=== PATIENT | male | born 1970 | race Caucasian/White ===

== ENCOUNTER 2018-11-07 11:10 | Emergency (ER) | payer OTHER ==
[~2018-11-07] VITALS: Ht 177.8 cm; Wt 74.8 kg
== END 2018-11-07 13:30 | disposition home or self-care (01) ==
LOC: ED 11:10
DX: H61.21 Impacted cerumen, right ear (principal); F17.200 Nicotine dependence, unspecified, uncomplicated; Z88.8 Allergy status to other drugs, medicaments and biological substances

== ENCOUNTER 2019-04-30 10:30 | Emergency (ER) | payer OTHER ==
[~2019-04-30] VITALS: Ht 177.8 cm; Wt 74.8 kg
== END 2019-04-30 11:37 | disposition home or self-care (01) ==
LOC: ED 10:30
DX: S66.911A Strain of unspecified muscle, fascia and tendon at wrist and hand level, right hand, initial encounter (principal); E78.00 Pure hypercholesterolemia, unspecified; Z88.8 Allergy status to other drugs, medicaments and biological substances; X58.XXXA Exposure to other specified factors, initial encounter; Y93.89 Activity, other specified; Y92.89 Other specified places as the place of occurrence of the external cause; Y99.8 Other external cause status

== ENCOUNTER 2020-10-14 19:51 | Emergency (ER) | payer OTHER ==
[2020-10-14 20:53] LABS: BASO % 0.3 % (0.0-1.0); EOS # 0.1 10*3/uL (0.0-0.4); HEMATOCRIT 43.7 % (42.0-52.0); LYMPH # 1.3 10*3/uL (1.3-4.4); MEAN CELL VOLUME 89.4 fl (80.0-94.0); MEAN CORPUSCULAR HGB 30.1 pg (27.0-31.0); MEAN CORPUSCULAR HGB CONC 33.6 g/dl (33.0-37.0); MEAN PLATELET VOLUME 10.2 fl (9.6-12.3); MONO # 0.8 10*3/uL (0.1-1.0); MONO % 6.3 % (3.0-9.0); NEUT # 10.3 10*3/uL (2.3-7.9); NEUT % 82.1 % (47.0-73.0); PLATELET COUNT AUTOMATED 327 10*3/uL (130-400); RED BLOOD COUNT 4.89 10*6/uL (4.50-5.90); RED CELL DISTRI WIDTH 13.2 % (0-14.5); WHITE BLOOD COUNT 12.6 10*3/uL (4.8-10.8)
[2020-10-14 21:30] LABS: ALBUMIN 4.4 gm/dl (3.1-4.5); ALKALINE PHOSPHATASE 43 U/L (45-117); BUN 18 mg/dl (7-24); CHLORIDE 109 mmol/L (98-107); CREATININE 1.16 mg/dL (0.70-1.30); LIPASE 92 U/L (73-393); POTASSIUM 3.4 mmol/L (3.5-5.1); SGOT/AST 22 IU/L (3-35); SGPT/ALT 37 U/L (12-78); SODIUM 139 mmol/L (136-145); TOTAL PROTEIN 8.4 gm/dL (6.4-8.2)
[2020-10-14 22:19] LABS: BILIRUBIN Negative (Negative); BLOOD Trace-Intact (Negative); CLARITY Turbid (Clear); COLOR Yellow (Yellow); GLUCOSE Negative (Negative); KETONE Negative (Negative); LEUKO ESTERASE Negative (Negative); NITRITE Negative (Negative); SPECIFIC GRAVITY 1.015 (1.001-1.030)
[2020-10-14 22:21] LABS: PH 8.5 (4.5-8.0)
== END 2020-10-14 23:28 | disposition home or self-care (01) ==
LOC: ED 19:51
PROVIDERS: Emergency Medicine
DX: R10.31 Right lower quadrant pain (principal); R11.10 Vomiting, unspecified; R19.7 Diarrhea, unspecified

== ENCOUNTER 2020-11-08 18:30 | Emergency (ER) | payer OTHER ==
[~2020-11-08] VITALS: Ht 182.8 cm; Wt 95.9 kg
[2020-11-08 19:09] LABS: BASO % 0.4 % (0.0-1.0); EOS # 0.1 10*3/uL (0.0-0.4); EOS % 0.6 % (1.0-4.0); HEMATOCRIT 39.3 % (42.0-52.0); LYMPH # 1.5 10*3/uL (1.3-4.4); LYMPH % 14.4 % (27.0-41.0); MEAN CELL VOLUME 88.1 fl (80.0-94.0); MEAN CORPUSCULAR HGB 30.5 pg (27.0-31.0); MEAN CORPUSCULAR HGB CONC 34.6 g/dl (33.0-37.0); MEAN PLATELET VOLUME 10.5 fl (9.6-12.3); MONO % 9.6 % (3.0-9.0); NEUT % 74.7 % (47.0-73.0); PLATELET COUNT AUTOMATED 242 10*3/uL (130-400); RED BLOOD COUNT 4.46 10*6/uL (4.50-5.90); RED CELL DISTRI WIDTH 13.3 % (0-14.5); WHITE BLOOD COUNT 10.7 10*3/uL (4.8-10.8)
[2020-11-08 19:23] LABS: ALBUMIN 4.1 gm/dl (3.1-4.5); ALKALINE PHOSPHATASE 52 U/L (45-117); BUN 21 mg/dl (7-24); CHLORIDE 110 mmol/L (98-107); CREATININE 1.48 mg/dL (0.70-1.30); LIPASE 70 U/L (73-393); POTASSIUM 3.3 mmol/L (3.5-5.1); SGOT/AST 24 IU/L (3-35); SGPT/ALT 36 U/L (12-78); SODIUM 143 mmol/L (136-145)
[2020-11-08] MEDS ORDERED: FLOMAX0.4 MG PO (20:49)
[2020-11-08] MEDS ORDERED: ZOFRAN4 MG PO (20:49)
== END 2020-11-08 21:06 | disposition home or self-care (01) ==
LOC: ED 18:30
PROVIDERS: Internal Medicine
DX: N20.9 Urinary calculus, unspecified (principal); I10 Essential (primary) hypertension; F32.9 Major depressive disorder, single episode, unspecified; E78.00 Pure hypercholesterolemia, unspecified

== ENCOUNTER 2021-01-29 12:40 | Emergency (ER) | payer OTHER ==
[~2021-01-29] VITALS: Wt 68.5 kg
[~2021-01-29 12:40] MED LIST: FLOMAX0.4 MG PO; ZOFRAN4 MG PO
[2021-01-29 13:14] LABS: BILIRUBIN Negative (Negative); BLOOD 3+ (Negative); CLARITY Clear (Clear); COLOR Yellow (Yellow); GLUCOSE Negative (Negative); KETONE Negative (Negative); LEUKO ESTERASE Negative (Negative); NITRITE Negative (Negative); SPECIFIC GRAVITY 1.015 (1.001-1.030); UROBILINOGEN 0.2 E.U./dl (0.0-1.0)
[2021-01-29 13:32] LABS: BACTERIA TRACE; RBC TNTC rbc/hpf (0-2)
[2021-01-29 14:35] LABS: BASO # 0.1 10*3/uL (0.0-0.1); BASO % 0.7 % (0.0-1.0); EOS # 0.5 10*3/uL (0.0-0.4); HEMATOCRIT 41.2 % (42.0-52.0); LYMPH # 1.3 10*3/uL (1.3-4.4); LYMPH % 17.7 % (27.0-41.0); MEAN CORPUSCULAR HGB 30.9 pg (27.0-31.0); MEAN CORPUSCULAR HGB CONC 33.3 g/dl (33.0-37.0); MEAN PLATELET VOLUME 10.1 fl (9.6-12.3); MONO # 0.7 10*3/uL (0.1-1.0); MONO % 9.7 % (3.0-9.0); NEUT # 4.8 10*3/uL (2.3-7.9); PLATELET COUNT AUTOMATED 301 10*3/uL (130-400); RED BLOOD COUNT 4.43 10*6/uL (4.50-5.90); RED CELL DISTRI WIDTH 14.6 % (0-14.5); WHITE BLOOD COUNT 7.4 10*3/uL (4.8-10.8)
[2021-01-29 14:54] LABS: ALBUMIN 3.6 gm/dl (3.1-4.5); BUN 13 mg/dl (7-24); CHLORIDE 111 mmol/L (98-107); SODIUM 140 mmol/L (136-145)
[2021-01-29 14:58] LABS: ALKALINE PHOSPHATASE 59 U/L (45-117); CREATININE 1.03 mg/dL (0.70-1.30); SGOT/AST 20 IU/L (3-35); SGPT/ALT 34 U/L (12-78); TOTAL PROTEIN 7.6 gm/dL (6.4-8.2)
[2021-01-29] MEDS ORDERED: PERCOCET 5-3251 EACH PO (17:17)
[2021-01-29] MEDS ORDERED: FLOMAX0.4 MG PO (17:17)
[2021-01-29] MEDS ORDERED: NORVASC10 MG PO (17:17)
[2021-01-29] MEDS ORDERED: ZOFRAN4 MG PO (17:17)
== END 2021-01-29 17:19 | disposition left against medical advice (07) ==
LOC: ED 12:40
PROVIDERS: Emergency Medicine; Nurse Practitioner Family
DX: N20.0 Calculus of kidney (principal); N20.1 Calculus of ureter; I10 Essential (primary) hypertension; Z79.899 Other long term (current) drug therapy; Z88.5 Allergy status to narcotic agent

== ENCOUNTER → 2021-02-22 | Outpatient (CLI) | payer OTHER ==
[~2021-02-22] MED LIST changes: +NORVASC10 MG PO; +PERCOCET 5-3251 EACH PO
== END | disposition home or self-care (01) ==
LOC: RAD 10:30
PROVIDERS: ATTEND Urology
DX: N20.0 Calculus of kidney (principal); N32.0 Bladder-neck obstruction

== ENCOUNTER → 2021-02-24 | Outpatient (CLI) | payer OTHER | END | disposition home or self-care (01) | LOC: CARD 15:59 | DX: E11.65 Type 2 diabetes mellitus with hyperglycemia (principal) ==

== ENCOUNTER → 2021-04-18 | Outpatient (CLI) | payer OTHER ==
[2021-04-18 11:16] LABS: MEAN CELL VOLUME 92.1 fl (80.0-94.0); MEAN CORPUSCULAR HGB 30.2 pg (27.0-31.0); MEAN CORPUSCULAR HGB CONC 32.8 g/dl (33.0-37.0); MEAN PLATELET VOLUME 9.9 fl (9.6-12.3); NUCLEATED RED BLOOD CELL 0.2 % (0.0-0.0); PLATELET COUNT AUTOMATED 371 10*3/uL (130-400); RED BLOOD COUNT 4.67 10*6/uL (4.50-5.90); RED CELL DISTRI WIDTH 14.6 % (0-14.5); WHITE BLOOD COUNT 9.6 10*3/uL (4.8-10.8)
[2021-04-18 11:35] LABS: ALBUMIN 3.8 gm/dl (3.1-4.5); BUN 16 mg/dl (7-24); CHLORIDE 111 mmol/L (98-107); CHOLESTEROL 292 mg/dL (<200); CREATININE 0.97 mg/dL (0.70-1.30); POTASSIUM 3.5 mmol/L (3.5-5.1); SGOT/AST 8 IU/L (3-35); SGPT/ALT 21 U/L (12-78); SODIUM 143 mmol/L (136-145); TOTAL PROTEIN 7.6 gm/dL (6.4-8.2); TRIGLYCERIDES 646 mg/dl (<150)
[2021-04-18 11:41] LABS: ALKALINE PHOSPHATASE 64 U/L (45-117); FREE T4 0.87 ng/dl (0.76-1.46)
[2021-04-18 11:50] LABS: TOTAL CELLS COUNTED 100 #CELLS
[2021-04-18 11:51] LABS: DIFFERENTIAL COMMENT COMMENT:; PLATELET SUFFICIENCY LOW (NORMAL)
[2021-04-18 12:13] LABS: VITAMIN D, 25-HYDROXY 15.4 ng/mL (30-100)
== END | disposition home or self-care (01) ==
LOC: LAB 10:41
PROVIDERS: ATTEND Internal Medicine
DX: Z13.1 Encounter for screening for diabetes mellitus (principal); Z13.21 Encounter for screening for nutritional disorder; Z13.220 Encounter for screening for lipoid disorders; Z13.228 Encounter for screening for other metabolic disorders; Z13.89 Encounter for screening for other disorder; Z12.5 Encounter for screening for malignant neoplasm of prostate; Z13.0 Encounter for screening for diseases of the blood and blood-forming organs and certain disorders involving the immune mechanism; R53.81 Other malaise; R79.89 Other specified abnormal findings of blood chemistry; E55.9 Vitamin D deficiency, unspecified; D51.9 Vitamin B12 deficiency anemia, unspecified; E03.9 Hypothyroidism, unspecified; D52.9 Folate deficiency anemia, unspecified; I10 Essential (primary) hypertension; E78.2 Mixed hyperlipidemia; R07.9 Chest pain, unspecified

== ENCOUNTER 2021-07-01 20:28 | Emergency (ER) | payer OTHER ==
[~2021-07-01] VITALS: Ht 177.8 cm; Wt 72.6 kg
[2021-07-01] MEDS ORDERED: AMOXICILLIN500 M2 PO (21:02)
[2021-07-01] MEDS ORDERED: IBUPROFEN600 MG PO (21:02)
[2021-07-01] MEDS ORDERED: FENOFIBRATE160 MG PO (21:03)
[2021-07-01] MEDS ORDERED: BACLOFEN5 MG PO (21:03)
[2021-07-01] MEDS ORDERED: GABAPENTIN400 MG PO (21:04)
[2021-07-01] MEDS ORDERED: QUETIAPINE FUM100 M3 PO (21:04)
[2021-07-01] MEDS ORDERED: CLONAZEPAM0.5 M2 PO (21:05)
[2021-07-01] MEDS ORDERED: SIMVASTATIN20 MG PO (21:06)
[2021-07-01] MEDS ORDERED: ONDANSETRON HYDR4 MG PO (21:06)
[2021-07-01] MEDS ORDERED: LISINOPRIL-HCT1 EACH PO (21:06)
== END 2021-07-01 23:00 | disposition left against medical advice (07) ==
LOC: ED 20:28
DX: R21 Rash and other nonspecific skin eruption (principal); Z53.21 Procedure and treatment not carried out due to patient leaving prior to being seen by health care provider

== ENCOUNTER 2021-08-07 12:02 | Emergency (ER) | payer OTHER ==
[~2021-08-07] VITALS: Ht 177.8 cm; Wt 68.0 kg
[~2021-08-07 12:02] MED LIST changes: +AMOXICILLIN500 M2 PO; +BACLOFEN5 MG PO; +CLONAZEPAM0.5 M2 PO; +FENOFIBRATE160 MG PO; +GABAPENTIN400 MG PO; +IBUPROFEN600 MG PO; +LISINOPRIL-HCT1 EACH PO; +ONDANSETRON HYDR4 MG PO; +QUETIAPINE FUM100 M3 PO; +SIMVASTATIN20 MG PO
[2021-08-07 12:52] LABS: BASO # 0.1 10*3/uL (0.0-0.1); BASO % 0.9 % (0.0-1.0); EOS # 0.1 10*3/uL (0.0-0.4); EOS % 1.6 % (1.0-4.0); HEMATOCRIT 42.1 % (42.0-52.0); LYMPH # 1.6 10*3/uL (1.3-4.4); LYMPH % 23.8 % (27.0-41.0); MEAN CELL VOLUME 93.8 fl (80.0-94.0); MEAN CORPUSCULAR HGB 31.4 pg (27.0-31.0); MEAN CORPUSCULAR HGB CONC 33.5 g/dl (33.0-37.0); MEAN PLATELET VOLUME 10.3 fl (9.6-12.3); MONO # 0.6 10*3/uL (0.1-1.0); MONO % 8.5 % (3.0-9.0); NEUT # 4.3 10*3/uL (2.3-7.9); NEUT % 64.5 % (47.0-73.0); PLATELET COUNT AUTOMATED 337 10*3/uL (130-400); RED BLOOD COUNT 4.49 10*6/uL (4.50-5.90); RED CELL DISTRI WIDTH 13.6 % (0-14.5); WHITE BLOOD COUNT 6.7 10*3/uL (4.8-10.8)
[2021-08-07 13:08] LABS: ALBUMIN 4.1 gm/dl (3.1-4.5); CREATININE 1.68 mg/dL (0.70-1.30); POTASSIUM 3.7 mmol/L (3.5-5.1); TOTAL PROTEIN 8.5 gm/dL (6.4-8.2)
[2021-08-07 13:34] LABS: BILIRUBIN Negative (Negative); BLOOD Negative (Negative); CLARITY Clear (Clear); COLOR Yellow (Yellow); GLUCOSE Negative (Negative); KETONE Negative (Negative); LEUKO ESTERASE Negative (Negative); NITRITE Negative (Negative); SPECIFIC GRAVITY 1.025 (1.001-1.030)
== END 2021-08-07 15:50 | disposition home or self-care (01) ==
LOC: ED 12:02
PROVIDERS: Student in an Organized Health Care Education/Training Program
DX: N20.0 Calculus of kidney (principal); Z20.822 Contact with and (suspected) exposure to COVID-19; F17.210 Nicotine dependence, cigarettes, uncomplicated; Z88.8 Allergy status to other drugs, medicaments and biological substances; Z79.899 Other long term (current) drug therapy

== ENCOUNTER → 2021-10-05 | Outpatient (CLI) | payer OTHER | LOC: COVID19 16:32 | PROVIDERS: ATTEND Family Medicine | DX: Z11.52 Encounter for screening for COVID-19 (principal); Z20.822 Contact with and (suspected) exposure to COVID-19 ==

== ENCOUNTER 2022-08-19 18:34 | Emergency (ER) | payer OTHER ==
[~2022-08-19] VITALS: Ht 177.8 cm; Wt 72.6 kg
[2022-08-19] MEDS ORDERED: PREDNISONE20 M1 PO (20:33)
[2022-08-19] MEDS ORDERED: VIBRAMYCIN100 MG PO (20:33)
== END 2022-08-19 21:21 | disposition home or self-care (01) ==
LOC: ED 18:34
DX: J44.1 Chronic obstructive pulmonary disease with (acute) exacerbation (principal); Z20.822 Contact with and (suspected) exposure to COVID-19; Z88.8 Allergy status to other drugs, medicaments and biological substances; Z79.899 Other long term (current) drug therapy; F17.200 Nicotine dependence, unspecified, uncomplicated

== ENCOUNTER 2023-01-17 20:19 | Emergency (ER) | payer OTHER ==
[~2023-01-17] VITALS: Ht 179 cm; Wt 65.8 kg
[~2023-01-17 20:19] MED LIST changes: +PREDNISONE20 M1 PO; +VIBRAMYCIN100 MG PO
[2023-01-17] MEDS ORDERED: QUETIAPINE FUM100 M1 PO (20:29)
[2023-01-17] MEDS ORDERED: NEURONTIN400 MG PO (20:29)
[2023-01-17] MEDS ORDERED: ACYCLOVIR800 MG PO (21:13)
[2023-01-17] MEDS ORDERED: HYDROCODONE-AC1 EAC1 PO (21:13)
[2023-01-17] MEDS ORDERED: PREDNISONE10 MG PO (21:13)
== END 2023-01-17 21:55 | disposition home or self-care (01) ==
LOC: ED 20:19
DX: R10.11 Right upper quadrant pain (principal); I10 Essential (primary) hypertension; M54.6 Pain in thoracic spine; R07.81 Pleurodynia; F32.A Depression, unspecified; E78.00 Pure hypercholesterolemia, unspecified; J44.9 Chronic obstructive pulmonary disease, unspecified; Z88.8 Allergy status to other drugs, medicaments and biological substances; Z87.442 Personal history of urinary calculi; Z87.891 Personal history of nicotine dependence

== ENCOUNTER → 2023-03-27 | Outpatient (CLI) | payer OTHER ==
[~2023-03-27] MED LIST changes: +ACYCLOVIR800 MG PO; +HYDROCODONE-AC1 EAC1 PO; +NEURONTIN400 MG PO; +PREDNISONE10 MG PO; +QUETIAPINE FUM100 M1 PO
== END | disposition home or self-care (01) ==
LOC: CT 03-22 08:00
PROVIDERS: ATTEND Family Medicine
DX: Z12.2 Encounter for screening for malignant neoplasm of respiratory organs (principal); N20.0 Calculus of kidney; J44.9 Chronic obstructive pulmonary disease, unspecified; R91.1 Solitary pulmonary nodule

== ENCOUNTER 2024-04-13 09:11 | Emergency (ER) | payer OTHER ==
[~2024-04-13] VITALS: Ht 177.8 cm; Wt 55.3 kg
[2024-04-13] MEDS ORDERED: LORAZEPAM0.5 M1 PO (09:24)
[2024-04-13] MEDS ORDERED: Dexamethasone Sodium Phospha 20 MG/5 ML VIAL IM ONE (09:35)
[2024-04-13] MEDS ORDERED: Ketorolac Tromethamine 30 MG/ML VIAL IM ONE (09:35)
[2024-04-13] MEDS ORDERED: PERCOCET 5-3251 EACH PO (10:15)
== END 2024-04-13 10:22 | disposition home or self-care (01) ==
LOC: ED 09:11
DX: S22.31XA Fracture of one rib, right side, initial encounter for closed fracture (principal); I10 Essential (primary) hypertension; F32.A Depression, unspecified; E78.00 Pure hypercholesterolemia, unspecified; J44.9 Chronic obstructive pulmonary disease, unspecified; Z87.442 Personal history of urinary calculi; Z88.8 Allergy status to other drugs, medicaments and biological substances; W22.8XXA Striking against or struck by other objects, initial encounter; Y93.89 Activity, other specified; Y92.009 Unspecified place in unspecified non-institutional (private) residence as the place of occurrence of the external cause; Y99.8 Other external cause status

== ENCOUNTER 2024-04-27 11:34 | Emergency (ER) | payer OTHER ==
[~2024-04-27] VITALS: Ht 177.8 cm; Wt 55.3 kg
[~2024-04-27 11:34] MED LIST changes: +LORAZEPAM0.5 M1 PO
[2024-04-27] MEDS ORDERED: Albuterol Sulf/Ipratropium 3 ML VIAL NEB ONE (11:50)
[2024-04-27] MEDS ORDERED: methylPREDNISolone sod succ 125 MG VIAL IM ONE (11:50)
[2024-04-27 12:14] LABS: BASO # 0.1 10*3/uL (0.0-0.1); BASO % 0.8 % (0.0-1.0); EOS # 0.1 10*3/uL (0.0-0.4); EOS % 1.3 % (1.0-4.0); HEMATOCRIT 35.2 % (42.0-52.0); LYMPH # 1.3 10*3/uL (1.3-4.4); LYMPH % 15.4 % (27.0-41.0); MEAN CELL VOLUME 95.4 fl (80.0-94.0); MEAN CORPUSCULAR HGB 31.4 pg (27.0-31.0); MEAN PLATELET VOLUME 9.2 fl (9.6-12.3); MONO # 0.6 10*3/uL (0.1-1.0); NEUT # 6.4 10*3/uL (2.3-7.9); NEUT % 75.3 % (47.0-73.0); PLATELET COUNT AUTOMATED 329 10*3/uL (130-400); RED BLOOD COUNT 3.69 10*6/uL (4.50-5.90); RED CELL DISTRI WIDTH 14.2 % (0-14.5); WHITE BLOOD COUNT 8.5 10*3/uL (4.8-10.8)
[2024-04-27 12:42] LABS: BUN 13 mg/dl (9-23); CHLORIDE 109 mmol/L (98-107); POTASSIUM 3.7 mmol/L (3.4-5.1)
[2024-04-27] MEDS ORDERED: PREDNISONE50 MG PO (13:37)
[2024-04-27] MEDS ORDERED: ALBUTEROL 8 GM INHALER INH ONE (13:40)
== END 2024-04-27 13:58 | disposition home or self-care (01) ==
LOC: ED 11:34
PROVIDERS: Physician Assistant Medical
DX: J98.11 Atelectasis (principal); I10 Essential (primary) hypertension; J44.9 Chronic obstructive pulmonary disease, unspecified; F32.A Depression, unspecified; E78.00 Pure hypercholesterolemia, unspecified; F17.290 Nicotine dependence, other tobacco product, uncomplicated; Z87.442 Personal history of urinary calculi; Z88.8 Allergy status to other drugs, medicaments and biological substances

== ENCOUNTER 2024-04-30 00:31 | Inpatient (IN) | payer OTHER ==
[~2024-04-30] VITALS: Ht 177.8 cm; Wt 57.2 kg
[~2024-04-30 00:31] MED LIST changes: +PREDNISONE50 MG PO
[2024-04-30 00:42] VITALS: BP 148/90
[2024-04-30] MEDS ORDERED: Albuterol Sulf/Ipratropium 3 ML VIAL NEB ONE (01:00)
[2024-04-30 01:13] LABS: BASO % 0.2 % (0.0-1.0); EOS % 0.1 % (1.0-4.0); LYMPH % 8.6 % (27.0-41.0); MEAN CELL VOLUME 99.2 fl (80.0-94.0); MEAN CORPUSCULAR HGB 31.4 pg (27.0-31.0); MEAN CORPUSCULAR HGB CONC 31.7 g/dl (33.0-37.0); MEAN PLATELET VOLUME 9.3 fl (9.6-12.3); MONO # 0.4 10*3/uL (0.1-1.0); NEUT # 10.4 10*3/uL (2.3-7.9); NEUT % 87.8 % (47.0-73.0); PLATELET COUNT AUTOMATED 342 10*3/uL (130-400); RED BLOOD COUNT 3.53 10*6/uL (4.50-5.90); RED CELL DISTRI WIDTH 14.6 % (0-14.5); WHITE BLOOD COUNT 11.9 10*3/uL (4.8-10.8)
[2024-04-30 01:36] LABS: ALKALINE PHOSPHATASE 64 U/L (46-116); BUN 21 mg/dl (9-23); CHLORIDE 109 mmol/L (98-107); POTASSIUM 4.4 mmol/L (3.4-5.1); SGPT/ALT 31 U/L (5-49); TOTAL PROTEIN 6.7 gm/dL (6.0-8.0)
[2024-04-30] MEDS ORDERED: FUROSEMIDE 40 MG/4 ML VIAL IV ONE (03:20)
[2024-04-30] MEDS ORDERED: HEPARIN SODIUM 250 ML IV SCH ×2 (03:25→04:10)
[2024-04-30] MEDS ORDERED: BISACODYL 10 MG SUPP R PRN (04:05)
[2024-04-30] MEDS ORDERED: TEMAZEPAM 15 MG CAP PO PRN (04:05)
[2024-04-30] MEDS ORDERED: Ondansetron Hydrochloride 4 MG/2 ML VIAL IV PRN (04:05)
[2024-04-30] MEDS ORDERED: ACETAMINOPHEN 650 MG SUPP R PRN (04:05)
[2024-04-30] MEDS ORDERED: ACETAMINOPHEN 325 MG TAB PO PRN (04:05)
[2024-04-30] MEDS ORDERED: Magnesium Hydroxide 30 ML UDC PO PRN (04:05)
[2024-04-30] MEDS ORDERED: MORPHINE Sulfate 2 MG/ML SYR IV PRN (04:05)
[2024-04-30] MEDS ORDERED: BISACODYL 5 MG TAB PO PRN (04:05)
[2024-04-30] MEDS ORDERED: Albuterol Sulf/Ipratropium 3 ML VIAL NEB SCH (04:15)
[2024-04-30] MEDS ORDERED: ASPIRIN 325 MG TAB PO ONE (04:30)
[2024-04-30] MEDS ORDERED: methylPREDNISolone sod succ 125 MG VIAL IV ONE (04:35)
[2024-04-30] MEDS ORDERED: Pantoprazole Sodium 40 MG VIAL IV SCH (06:00)
[2024-04-30] MEDS ORDERED: AZITHROMYCIN 250 ML IV SCH (06:00)
[2024-04-30] MEDS ORDERED: Ceftriaxone Sodium 1 GM in SYRINGE INFUSION 10 ML IV SCH (06:00)
[2024-04-30 06:20] VITALS: BP 139/77
[2024-04-30 06:57] LABS: BASO % 0.1 % (0.0-1.0); EOS % 0.1 % (1.0-4.0); HEMATOCRIT 32.3 % (42.0-52.0); LYMPH # 1.1 10*3/uL (1.3-4.4); LYMPH % 9.1 % (27.0-41.0); MEAN CELL VOLUME 97.3 fl (80.0-94.0); MEAN CORPUSCULAR HGB 31.9 pg (27.0-31.0); MEAN CORPUSCULAR HGB CONC 32.8 g/dl (33.0-37.0); MEAN PLATELET VOLUME 9.7 fl (9.6-12.3); MONO # 0.6 10*3/uL (0.1-1.0); MONO % 4.7 % (3.0-9.0); NEUT % 85.5 % (47.0-73.0); PLATELET COUNT AUTOMATED 321 10*3/uL (130-400); RED BLOOD COUNT 3.32 10*6/uL (4.50-5.90); RED CELL DISTRI WIDTH 14.5 % (0-14.5); WHITE BLOOD COUNT 11.7 10*3/uL (4.8-10.8)
[2024-04-30 08:22] LABS: VITAMIN D, 25-HYDROXY 22.1 ng/mL (30-100)
[2024-04-30 08:27] LABS: ALKALINE PHOSPHATASE 61 U/L (46-116); BUN 20 mg/dl (9-23); CHLORIDE 108 mmol/L (98-107); CHOLESTEROL 255 mg/dL (<200); FREE T4 1.39 ng/dl (0.89-1.76); LDL CHOLESTEROL 178 mg/dL (9-159); SGPT/ALT 30 U/L (5-49); TOTAL PROTEIN 6.6 gm/dL (6.0-8.0); TRIGLYCERIDES 157 mg/dl (<150)
[2024-04-30 08:49] LABS: POTASSIUM 3.1 mmol/L (3.4-5.1)
[2024-04-30] MEDS ORDERED: POTASSIUM CHLORIDE 20 MEQ TAB PO ONE (09:30)
[2024-04-30] MEDS ORDERED: Metoprolol Tartrate 25 MG TAB PO SCH (10:00)
[2024-04-30] MEDS ORDERED: FUROSEMIDE 40 MG/4 ML VIAL IV SCH (10:00)
[2024-04-30] MEDS ORDERED: Dextromethorphan Hydrobromid 1 TAB TAB PO SCH (10:00)
[2024-04-30] MEDS ORDERED: Nicotine 21 MG PATCH T SCH (10:00)
[2024-04-30 17:48] VITALS: BP 136/78
[2024-04-30 20:43] VITALS: BP 135/75
[2024-04-30] MEDS ORDERED: ATORVASTATIN CALCIUM 80 MG TAB PO SCH (22:00)
[2024-04-30 23:00] VITALS: BP 135/76
[2024-05-01] VITALS: BP 138/78
[2024-05-01 06:34] LABS: HEMATOCRIT 33.2 % (42.0-52.0); LYMPH # 1.6 10*3/uL (1.3-4.4); LYMPH % 16.9 % (27.0-41.0); MEAN CELL VOLUME 97.6 fl (80.0-94.0); MEAN CORPUSCULAR HGB 31.5 pg (27.0-31.0); MEAN CORPUSCULAR HGB CONC 32.2 g/dl (33.0-37.0); MONO # 0.7 10*3/uL (0.1-1.0); MONO % 7.2 % (3.0-9.0); NEUT # 7.2 10*3/uL (2.3-7.9); NEUT % 75.4 % (47.0-73.0); PLATELET COUNT AUTOMATED 376 10*3/uL (130-400); RED CELL DISTRI WIDTH 14.4 % (0-14.5); WHITE BLOOD COUNT 9.6 10*3/uL (4.8-10.8)
[2024-05-01 06:50] LABS: CHLORIDE 107 mmol/L (98-107)
[2024-05-01 06:51] LABS: BUN 30 mg/dl (9-23)
[2024-05-01 08:00] VITALS: BP 127/68
[2024-05-01] MEDS ORDERED: methylPREDNISolone sod succ 40 MG VIAL IV SCH (10:00)
[2024-05-01] MEDS ORDERED: ASPIRIN ENTERIC COATED 81 MG TAB PO SCH (10:00)
[2024-05-01] MEDS ORDERED: Cholecalciferol 2,000 UNIT TABLET (50 MCG) PO SCH (10:00)
[2024-05-01 12:00] VITALS: BP 130/77
[2024-05-01 16:00] VITALS: BP 156/91
[2024-05-01] MEDS ORDERED: Technetium Tc 99M Tetrofosmi 0.23 MG KIT IJ SCH (16:00)
[2024-05-01 18:00] VITALS: BP 156/91
[2024-05-01 20:00] VITALS: BP 155/86
[2024-05-02] VITALS: BP 112/62
[2024-05-02 06:05] LABS: BUN 31 mg/dl (9-23); CHLORIDE 104 mmol/L (98-107); POTASSIUM 3.8 mmol/L (3.4-5.1)
[2024-05-02 06:27] LABS: BASO % 0.1 % (0.0-1.0); HEMATOCRIT 32.2 % (42.0-52.0); LYMPH # 0.9 10*3/uL (1.3-4.4); LYMPH % 11.6 % (27.0-41.0); MEAN CELL VOLUME 96.4 fl (80.0-94.0); MEAN CORPUSCULAR HGB 31.1 pg (27.0-31.0); MEAN CORPUSCULAR HGB CONC 32.3 g/dl (33.0-37.0); MEAN PLATELET VOLUME 10.5 fl (9.6-12.3); MONO # 0.6 10*3/uL (0.1-1.0); MONO % 7.3 % (3.0-9.0); NEUT # 6.1 10*3/uL (2.3-7.9); NEUT % 80.6 % (47.0-73.0); PLATELET COUNT AUTOMATED 374 10*3/uL (130-400); RED BLOOD COUNT 3.34 10*6/uL (4.50-5.90); RED CELL DISTRI WIDTH 14.2 % (0-14.5); WHITE BLOOD COUNT 7.5 10*3/uL (4.8-10.8)
[2024-05-02] MEDS ORDERED: Regadenoson 0.4 MG/5 ML SYR IV ONE (06:53)
[2024-05-02 08:00] VITALS: BP 121/61
[2024-05-02] MEDS ORDERED: VITAMIN D350 MCG PO (14:36)
[2024-05-02] MEDS ORDERED: PREDNISONE10 MG PO (14:36)
[2024-05-02] MEDS ORDERED: ZITHROMAX250 MG PO (14:36)
== END 2024-05-02 15:15 | disposition home or self-care (01) | DRG 194 ==
LOC: ED 00:31 → EDHOLD 03:47 → 4E 03:47 → EDHOLD 15:52 → 4E 21:24
PROVIDERS: Emergency Medicine; Student in an Organized Health Care Education/Training Program; ADMIT Student in an Organized Health Care Education/Training Program; ATTEND Student in an Organized Health Care Education/Training Program
PROC: 4A02XM4 Measurement of Cardiac Total Activity, External Approach (ICD-10-PCS; principal; 2024-05-02)
PROC: 3E073KZ Introduction of Other Diagnostic Substance into Coronary Artery, Percutaneous Approach (ICD-10-PCS; 2024-05-02)
DX: I50.9 Heart failure, unspecified (principal); J44.1 Chronic obstructive pulmonary disease with (acute) exacerbation; J81.0 Acute pulmonary edema; I21.4 Non-ST elevation (NSTEMI) myocardial infarction; J18.9 Pneumonia, unspecified organism; F32.A Depression, unspecified; I10 Essential (primary) hypertension; F12.90 Cannabis use, unspecified, uncomplicated; J98.11 Atelectasis; F17.210 Nicotine dependence, cigarettes, uncomplicated; R73.9 Hyperglycemia, unspecified; E78.2 Mixed hyperlipidemia; J44.0 Chronic obstructive pulmonary disease with (acute) lower respiratory infection; I77.819 Aortic ectasia, unspecified site; Z88.8 Allergy status to other drugs, medicaments and biological substances; Z87.442 Personal history of urinary calculi; Z81.8 Family history of other mental and behavioral disorders

== ENCOUNTER 2024-05-08 08:13 | Emergency (ER) | payer OTHER ==
[~2024-05-08 08:13] MED LIST changes: +VITAMIN D350 MCG PO; +ZITHROMAX250 MG PO
[2024-05-08] MEDS ORDERED: Albuterol Sulfate 2.5 MG/3 ML VIAL NEB ONE (08:35)
[2024-05-08] MEDS ORDERED: Albuterol Sulf/Ipratropium 3 ML VIAL NEB ONE (08:35)
[2024-05-08 08:54] LABS: BASO % 0.1 % (0.0-1.0); EOS # 0.1 10*3/uL (0.0-0.4); EOS % 0.9 % (1.0-4.0); HEMATOCRIT 35.4 % (42.0-52.0); LYMPH # 2.4 10*3/uL (1.3-4.4); LYMPH % 15.8 % (27.0-41.0); MEAN CELL VOLUME 98.1 fl (80.0-94.0); MEAN CORPUSCULAR HGB CONC 31.6 g/dl (33.0-37.0); MEAN PLATELET VOLUME 9.7 fl (9.6-12.3); MONO # 0.9 10*3/uL (0.1-1.0); MONO % 6.1 % (3.0-9.0); NEUT # 11.5 10*3/uL (2.3-7.9); NEUT % 76.2 % (47.0-73.0); PLATELET COUNT AUTOMATED 379 10*3/uL (130-400); RED BLOOD COUNT 3.61 10*6/uL (4.50-5.90)
[2024-05-08 09:07] LABS: ALKALINE PHOSPHATASE 57 U/L (46-116); BUN 18 mg/dl (9-23); CHLORIDE 106 mmol/L (98-107); POTASSIUM 3.7 mmol/L (3.4-5.1); SGPT/ALT 50 U/L (5-49); TOTAL PROTEIN 6.1 gm/dL (6.0-8.0)
[2024-05-08] MEDS ORDERED: methylPREDNISolone sod succ 125 MG VIAL IV ONE (10:40)
[2024-05-08] MEDS ORDERED: VIBRAMYCIN100 MG PO (11:43)
== END 2024-05-08 12:05 | disposition home or self-care (01) ==
LOC: ED 08:13
PROVIDERS: Emergency Medicine
DX: J18.9 Pneumonia, unspecified organism (principal); J44.9 Chronic obstructive pulmonary disease, unspecified; I11.0 Hypertensive heart disease with heart failure; I50.9 Heart failure, unspecified; F32.A Depression, unspecified; E78.00 Pure hypercholesterolemia, unspecified; Z87.442 Personal history of urinary calculi; F17.200 Nicotine dependence, unspecified, uncomplicated; F12.90 Cannabis use, unspecified, uncomplicated; Z88.8 Allergy status to other drugs, medicaments and biological substances; Z98.890 Other specified postprocedural states

== ENCOUNTER 2024-05-16 13:37 | Emergency (ER) | payer OTHER ==
[~2024-05-16] VITALS: Ht 177.8 cm; Wt 56.7 kg
[2024-05-16] MEDS ORDERED: AUVELITY ER 451 EACH PO (13:44)
[2024-05-16] MEDS ORDERED: SODIUM CHLORIDE 0.9% 1,000 ML IV ONE (13:45)
[2024-05-16] MEDS ORDERED: methylPREDNISolone sod succ 125 MG VIAL IV ONE (13:45)
[2024-05-16] MEDS ORDERED: Albuterol Sulfate 2.5 MG/3 ML VIAL NEB ONE (13:45)
[2024-05-16] MEDS ORDERED: MAGNESIUM SULFATE 50 ML IV ONE (13:45)
[2024-05-16 14:01] LABS: BASO # 0.1 10*3/uL (0.0-0.1); BASO % 0.5 % (0.0-1.0); EOS # 0.2 10*3/uL (0.0-0.4); EOS % 1.8 % (1.0-4.0); HEMATOCRIT 32.2 % (42.0-52.0); LYMPH # 1.4 10*3/uL (1.3-4.4); LYMPH % 14.1 % (27.0-41.0); MEAN CELL VOLUME 97.9 fl (80.0-94.0); MEAN CORPUSCULAR HGB 30.4 pg (27.0-31.0); MEAN CORPUSCULAR HGB CONC 31.1 g/dl (33.0-37.0); MEAN PLATELET VOLUME 8.8 fl (9.6-12.3); MONO # 0.6 10*3/uL (0.1-1.0); MONO % 5.8 % (3.0-9.0); NEUT # 7.6 10*3/uL (2.3-7.9); NEUT % 77.3 % (47.0-73.0); PLATELET COUNT AUTOMATED 270 10*3/uL (130-400); RED BLOOD COUNT 3.29 10*6/uL (4.50-5.90); RED CELL DISTRI WIDTH 14.1 % (0-14.5); WHITE BLOOD COUNT 9.8 10*3/uL (4.8-10.8)
[2024-05-16 14:16] LABS: BUN 17 mg/dl (9-23); CHLORIDE 107 mmol/L (98-107)
[2024-05-16] MEDS ORDERED: AVPAK AZITHROM250 M1 PO (14:34)
[2024-05-16] MEDS ORDERED: PREDNISONE20 M1 PO (14:34)
== END 2024-05-16 15:23 | disposition home or self-care (01) ==
LOC: ED 13:37
PROVIDERS: Emergency Medicine
DX: J44.1 Chronic obstructive pulmonary disease with (acute) exacerbation (principal); I10 Essential (primary) hypertension; E78.5 Hyperlipidemia, unspecified; I25.10 Atherosclerotic heart disease of native coronary artery without angina pectoris; F32.A Depression, unspecified; E78.00 Pure hypercholesterolemia, unspecified; F12.90 Cannabis use, unspecified, uncomplicated; F17.290 Nicotine dependence, other tobacco product, uncomplicated; Z87.442 Personal history of urinary calculi; Z88.8 Allergy status to other drugs, medicaments and biological substances; Z98.890 Other specified postprocedural states

== ENCOUNTER 2024-08-16 09:22 | Emergency (ER) | payer OTHER ==
[~2024-08-16] VITALS: Wt 58.1 kg
[~2024-08-16 09:22] MED LIST changes: +AUVELITY ER 451 EACH PO; +AVPAK AZITHROM250 M1 PO
[2024-08-16] MEDS ORDERED: CEFUROXIME AXE500 MG PO (10:00)
== END 2024-08-16 10:07 | disposition home or self-care (01) ==
LOC: ED 09:22
DX: L02.416 Cutaneous abscess of left lower limb (principal); I10 Essential (primary) hypertension; F32.A Depression, unspecified; J44.9 Chronic obstructive pulmonary disease, unspecified; E78.00 Pure hypercholesterolemia, unspecified; F12.90 Cannabis use, unspecified, uncomplicated; F17.200 Nicotine dependence, unspecified, uncomplicated; Z87.442 Personal history of urinary calculi; Z88.8 Allergy status to other drugs, medicaments and biological substances; Z88.6 Allergy status to analgesic agent; Z98.890 Other specified postprocedural states